=== PATIENT | male | born 1995 ===

== ENCOUNTER 2017-08-24 15:06 | Emergency (ER) | payer BC ==
[2017-08-24 15:11] VITALS: TEMP 97.9
[2017-08-24] MEDS ORDERED: KETOROLAC 30 MG/1 ML SDV IVP ONE (16:24)
[2017-08-24] MEDS ORDERED: DEXAMETHASONE 10 MG/ML VIAL IVP ONE (16:24)
[2017-08-24] MEDS ORDERED: METOCLOPRAMIDE 10 MG/2 ML VIAL IVP ONE (16:24)
[2017-08-24] MEDS ORDERED: NS 1,000 ML IV ONE ×2 (16:24→17:47)
--- NOTE | 2017-08-24 16:24 | EDPHY ---
H & P Stated Complaint: Migraines since 08/18/17, seen by ELICEO, told to come to ED. HPI/ROS: HPI CHIEF COMPLAINT: Headache HISTORY OF PRESENT ILLNESS: Patient 22-year-old male, he is otherwise healthy does have a history of IBS, remote history of migraine headaches prior to getting his vision corrected, he presents emergency room with left-sided headache is throbbing in nature it is located left frontal region. He does have light sensitivity and loud noises bother him. Patient reports to me that this started on Monday he was rather intense on Monday persisted on Monday on Monday it continued he went daycare received Toradol shot he did feels better on Monday then returned it has been progressing. Complains of left- sided headache. Throbbing in nature. He denies neck pain or stiff neck. Denies fever. Denies double vision. Denies chest pain or shortness of breath. Denies recent illness. No vomiting but does have nausea. Was told if the headache got worse to come to the emergency room. Past Medical History: No significant medical history except for IBS remote history of migraine headaches Past Surgical History: Denies recent surgical history Social History: Denies daily use drugs alcohol tobacco products. [employer] [facility] [employer] [facility] [employer] student Family History: Noncontributory ROS REVIEW OF SYSTEMS: A comprehensive 10 point review of systems is otherwise negative aside from elements mentioned in the history of present illness. Exam Constitutional appears well nontoxic in no acute distress, triage nursing summary reviewed, vital signs reviewed, awake/alert. Eyes normal conjunctivae and sclera, EOMI, PERRLA. HENT normal inspection, atraumatic, moist mucus membranes, no epistaxis, neck supple/ no meningismus, no raccoon eyes. Respiratory clear to auscultation bilaterally, normal breath sounds, no respiratory distress, no wheezing. Cardiovascular rate normal, regular rhythm, no murmur, no edema, distal pulses normal. Gastrointestinal soft, non-tender, no rebound, no guarding, normal bowel sounds, no distension, no pulsatile mass. Genitourinary no CVA tenderness. Musculoskeletal no midline vertebral tenderness, full range of motion, no calf swelling, no tenderness of extremities, no meningismus, good pulses, neurovascularly intact. Skin pink, warm, & dry, no rash, skin atraumatic. Neurologic normal neurological exam no focal neuro deficit appreciated exam, no meningeal signs, no stiff neck, awake, alert and oriented x 3, AAOx3, moves all 4 extremities equally, motor intact, sensory intact, CN II-XII intact, normal cerebellar, normal vision, normal speech. Psychiatric normal mood/affect. Heme/Lymph/Immune no lymphadenopathy. Differential Diagnosis: Includes but is not limited to in a particular order migraine headache, tension headache, cluster headache, intracranial bleed, brain tumor, dehydration, elect starts, infection Medical Decision Making: Plan for this patient CT scan head without contrast to help delineate cause of his headache, IV establishment blood draw, migraine cocktail with medications Re-evaluation: CT head without contrast negative for traumatic injury. No bleed. Called to me by Dr. Real 1801: Patient re-evaluated. Patient resting comfortably no acute distress. Does state he still has a left-sided frontal headache. It is improved with medication. I will re-medicate him with pain medicine and nausea medicine 2nd L fluid and re-evaluate. 190: Patient re-evaluated he has normal neurological exam. He states headache is greatly improved currently 1/10 left-sided frontal. No focal numbness or tingling or weakness. Denies chest pain shortness of breath. CT scan is unremarkable. I reviewed his blood work which is also unremarkable. Do recommend he follows up with a neurologist for migraine or headache. Additionally recommend return emergency room if develops worsening symptoms questions or concerns. This patient appears well normal neurological exam no evidence meningitis. This time I do not feel that he needs any further imaging nor do I feel that he needs an LP. Fioricet prescription Source: Patient - Personal History Current Tetanus Diphtheria and Acellular Pertussis (TDAP): Yes - Medical/Surgical History Hx Asthma: No Hx Chronic Respiratory Disease: No Hx Diabetes: No Hx Cardiac Disease: No Hx Renal Disease: No Hx Cirrhosis: No Hx Alcoholism: No Hx HIV/AIDS: No Hx Splenectomy or Spleen Trauma: No Other PMH: Denies - Social History Smoking Status: Never smoked Constitutional: Initial Vital Signs Temperature (C) 36.6 C 08/24/17 15:08 Heart Rate 82 08/24/17 15:08 Respiratory Rate 18 08/24/17 15:08 Blood Pressure 155/98 H 08/24/17 15:08 O2 Sat (%) 99 08/24/17 15:08 O2 Delivery Mode Room Air Allergies/Adverse Reactions: No Known Allergies Allergy (Unverified 08/24/17 15:11) Home Medications: Medication Instructions Recorded Acet/Caffeine/Buta Fioricet 1 each PO Q6 #10 tab 08/24/17 [Fioricet (*)] Medical Decision Making - Diagnostics Imaging Results: Imaging Impressions Head CT 08/24/17 16:24 Impression: 1. Polypoid thickening in the sinuses versus mucous retention cysts, the largest in the right maxillary sinus. No air-fluid levels. 2. Otherwise normal CT brain without contrast. 3. Consider MRI of the brain, if there is continued clinical concern. Findings and recommendations discussed with Emergency Department physician, Dr. Pino Weldon at 1658 hours on August 24, 2017. Final report concurs with initial preliminary interpretation. - Data Points Laboratory Results: Laboratory Results 08/24/17 16:33 08/24/17 16:33 08/24/17 08/24/17 08/24/17 16:33 16:33 16:33 WBC 7.82 10^3/uL 10^3/uL (3.80-9.50) RBC 5.74 10^6/uL 10^6/uL (4.40-6.38) Hgb 17.1 g/dL g/dL (13.7-17.5) Hct 50.0 % % (40.0-51.0) MCV 87.1 fL fL (81.5-99.8) MCH 29.8 pg pg (27.9-34.1) MCHC 34.2 g/dL g/dL (32.4-36.7) RDW 12.0 % % (11.5-15.2) Plt Count 285 10^3/uL 10^3/uL (150-400) MPV 10.4 fL fL (8.7-11.7) Neut % (Auto) 63.6 % % (39.3-74.2) Lymph % (Auto) 28.6 % % (15.0-45.0) [place] % (Auto) 6.6 % % (4.5-13.0) Eos % (Auto) 0.5 % L % (0.6-7.6) Baso % (Auto) 0.4 % % (0.3-1.7) Nucleat RBC Rel Count 0.0 % % (0.0-0.2) Absolute Neuts (auto) 4.97 10^3/uL 10^3/uL (1.70-6.50) Absolute Lymphs (auto) 2.24 10^3/uL 10^3/uL (1.00-3.00) Absolute Monos (auto) 0.52 10^3/uL 10^3/uL (0.30-0.80) Absolute Eos (auto) 0.04 10^3/uL 10^3/uL (0.03-0.40) Absolute Basos (auto) 0.03 10^3/uL 10^3/uL (0.02-0.10) Absolute Nucleated RBC 0.00 10^3/uL 10^3/uL (0-0.01) Immature Gran % 0.3 % % (0.0-1.1) Immature Gran # 0.02 10^3/uL 10^3/uL (0.00-0.10) PT 13.4 SEC SEC (12.0-15.0) INR 1.00 (0.83-1.16) Sodium 144 mEq/L mEq/L (135-145) Potassium 4.3 mEq/L mEq/L (3.5-5.2) Chloride 104 mEq/L mEq/L (97-110) Carbon Dioxide 26 mEq/l mEq/l (22-31) Anion Gap 14 mEq/L mEq/L (8-16) BUN 9 mg/dL mg/dL (7-23) Creatinine 1.1 mg/dL mg/dL (0.7-1.3) Estimated GFR > 60 Glucose 88 mg/dL mg/dL (70-100) Calcium 10.3 mg/dL mg/dL (8.5-10.4) Medications Given: Discontinued Medications Dexamethasone (Decadron Injection) 10 mg IVP EDNOW ONE Stop: 08/24/17 16:25 Last Admin: 08/24/17 16:46 Dose: 10 mg Diphenhydramine HCl (Benadryl Injection) 50 mg IVP EDNOW ONE Stop: 08/24/17 16:25 Last Admin: 08/24/17 16:46 Dose: 50 mg Hydromorphone HCl (Dilaudid) 1 mg IVP EDNOW ONE Stop: 08/24/17 17:47 Last Admin: 08/24/17 18:05 Dose: 1 mg Sodium Chloride (Ns) 1,000 mls @ 0 mls/hr IV ONCE ONE; Wide Open PRN Reason: Protocol Stop: 08/24/17 16:25 Last Admin: 08/24/17 16:45 Dose: 1,000 mls Sodium Chloride (Ns) 1,000 mls @ 0 mls/hr IV ONCE ONE PRN Reason: Wide Open Stop: 08/24/17 17:48 Last Admin: 08/24/17 18:06 Dose: 1,000 mls Ketorolac Tromethamine (Toradol) 30 mg IVP EDNOW ONE Stop: 08/24/17 16:25 Last Admin: 08/24/17 16:45 Dose: 30 mg Metoclopramide HCl (Reglan Injection) 10 mg IVP EDNOW ONE Stop: 08/24/17 16:25 Last Admin: 08/24/17 16:45 Dose: 10 mg Promethazine HCl (Phenergan) 6.25 mg IVP ONCE ONE Stop: 08/24/17 17:47 Last Admin: 08/24/17 18:52 Dose: 6.25 mg Departure - Departure Disposition: Home, Routine, Self-Care Clinical Impression: Headache Qualifiers: Headache type: unspecified Headache chronicity pattern: acute headache Intractability: not intractable Qualified Code(s): R51 - Headache Condition: Good Instructions: Acute Headache (ED) Additional Instructions: 1. Return to the emergency room if you have worsening headache fever vomiting. 2. Follow up with Neurology. Referrals: NONE *PRIMARY CARE P,. [Primary Care Provider] - As per Instructions Farzad aMrsh DO [Doctor of Osteopathy] - As per Instructions Prescriptions: Acet/Caffeine/Buta Fioricet [Fioricet (*)] 1 each PO Q6 #10 tab
[2017-08-24 16:47] LABS: PLATELET COUNT 285 10^3/uL (150-400)
[2017-08-24 17:31] VITALS: RESP 16
[2017-08-24 17:38] LABS: PROTIME(PATIENT) 13.4 SEC (12.0-15.0)
[2017-08-24] MEDS ORDERED: HYDROmorphONE/DILAUDID 1 MG/ML INJ IVP ONE (17:46)
[2017-08-24] MEDS ORDERED: PROMETHAZINE HCL 25 MG/ML INJ IVP ONE (17:46)
[2017-08-24 19:26] VITALS: BP 155/71; PULSE 65; O2SAT 95
== END 2017-08-24 19:25 | disposition home or self-care (01) ==
DX: R51 Headache (principal); E86.9 Volume depletion, unspecified
CPT/HCPCS: 96374; J1100; J1170; J1200; J1885; J2550; J2765